=== PATIENT | female | born 1995 | race Caucasian/White ===

== ENCOUNTER 2016-11-09 23:19 | Emergency (ER) | payer OTHER ==
[2016-11-10 00:28] VITALS: BP 110/67; PULSE 69; TEMP 98.2; BMI 20.7
[2016-11-10] MEDS ORDERED: PROPARACAINE 0.5% OPHTH SOLN 15 ML BTL OD ONE (00:57)
--- NOTE | 2016-11-10 00:57 | PDOC ---
[id number] No Limitations - History of Present Illness Timing/Duration: 24 hours <Polo Christieui - Last Filed: 11/10/16 01:24> <Alice Rosales - Last Filed: 11/14/16 07:35> - General Chief Complaint: Eye Problem Stated Complaint: EYE PROBLEM Time Seen by Provider: 11/10/16 00:50 Past History - Travel Traveled outside of the country in the last 30 days: No Close contact w/someone who was outside of country & ill: No - Past Medical History Asthma: Yes (LAST ATTACK YEARS AGO) Cancer: No Cardiac Disorders: No Diabetes: No HTN: No Seizures: No Thyroid Disease: No - Psycho/Social/Smoking Cessation Hx Suicidal Ideation: No Smoking History: Never smoked Have you smoked in the past 12 months: No If you are a former smoker, when did you quit?: 3 yrs ago Hx Alcohol Use: No Drug/Substance Use Hx: No Hx Substance Use Treatment: No <ShahnazBárbara - Last Filed: 11/10/16 01:24> <Alice Rosales - Last Filed: 11/14/16 07:35> - Past Medical History Allergies/Adverse Reactions: Allergies Allergy/AdvReac Type Severity Reaction Status Date / Time No Known Allergies Allergy Verified 11/10/16 00:26 Review of Systems - Review of Systems Able to Perform ROS?: Yes Comments:: 11/10/16 00:54 CONSTITUTIONAL: Absent: fever, chills, diaphoresis, generalized weakness, malaise, loss of appetite HEENT: Right eye redness/FB sensation Absent: rhinorrhea, nasal congestion, throat pain, throat swelling, difficulty swallowing, mouth swelling, ear pain, eye pain, visual Changes Is the patient limited [place]an proficient: No <Shahnaz,Bárbara - Last Filed: 11/10/16 01:24> *Physical Exam - Vital Signs Last Vital Signs Temp Pulse Resp BP Pulse Ox 98.2 F 69 18 110/67 98 11/10/16 00:26 11/10/16 00:26 11/10/16 00:26 11/10/16 00:26 11/10/16 00:26 - Physical Exam Comments: 11/10/16 00:54 GENERAL: Well developed, well nourished. Awake and alert. No acute distress. HEENT: Normocephalic, atraumatic. PERRLA, EOMI. No conjunctival pallor. Sclera are non- icteric. Moist mucous membranes. Oropharynx is clear. VA: right; Left: B/L: 11/10/16 00:55 21-year-old female presents to the emergency department complaining of a foreign body sensation to the right eye since she awoke this morning. Patient denies any injuries. Patient denies wearing contact lenses. Patient denies blurry vision or visual disturbance. <Bárbara Christie - Last Filed: 11/10/16 01:24> - Vital Signs Last Vital Signs Temp Pulse Resp BP Pulse Ox 98.2 F 69 18 110/67 98 11/10/16 00:26 11/10/16 00:26 11/10/16 00:26 11/10/16 00:26 11/10/16 00:26 <Alice Rosales - Last Filed: 11/14/16 07:35> ED Treatment Course - Medications Given in the ED: ED Medications Discontinued Medications Generic Name Dose Route Start Last Admin Trade Name Freq PRN Reason Stop Dose Admin Erythromycin 1 applic 11/10/16 01:25 11/10/16 01:53 Erythromycin 0.5% Eye Ointment OD 11/10/16 01:26 1 applic ONCE ONE Administration Proparacaine HCl 2 drop 11/10/16 00:57 11/10/16 01:53 Alcaine - OD 11/10/16 00:58 2 drop ONCE ONE Administration Tetanus/Diphtheria Toxoids Adsorbed 0.5 ml 11/10/16 01:28 11/10/16 01:53 Decavac - IM 11/10/16 01:29 0.5 ml .ONCE ONE Administration <Alice Rosales - Last Filed: 11/14/16 07:35> *DC/Admit/Observation/Transfer <Bárbara Christie - Last Filed: 11/10/16 01:24> - Attestations Physician Attestion: I reviewed the case with the mid-level practitioner and agree with the mid- level practitioner's assessment, diagnosis and disposition. <Alice Rosales - Last Filed: 11/14/16 07:35> Diagnosis at time of Disposition: Conjunctivitis Qualifiers: Conjunctivitis type: acute Acute conjunctivitis type: viral Laterality: right Qualified Code(s): B30.9 - Viral conjunctivitis, unspecified - Discharge Dispostion Disposition: HOME Condition at time of disposition: Stable - Prescriptions Prescriptions: Erythromycin 0.5% Eye Ointment [Erythromycin 0.5% Eye Ointment -] 1 applic OD BID #1 tube - Referrals Referrals: Jaquelin Hannon MD [Primary Care Provider] - Angelica Dunaway MD [Staff Physician] - - Patient Instructions Printed Discharge Instructions: DI for Conjunctivitis Additional Instructions: Follow up with the opthalmologist Return to the ER for severe/persistent/worsening symptoms Erythromycin opthalic ointment twice a day to the right eye
[2016-11-10] MEDS ORDERED: FLUORESCEIN NA 1 EA STRIP ONE (01:10)
[2016-11-10] MEDS ORDERED: TETRACAINE 0.5% OPHTH SOLN 2 ML BOTTLE ONE (01:10)
[2016-11-10] MEDS ORDERED: ERYTHROMYCIN 0.5% OPHTHALMIC OINTMENT 3.5 GM TUBE OD ONE (01:25)
[2016-11-10] MEDS ORDERED: TETANUS AND DIPHTHERIA TOXOID 0.5 ML DISP.SYRIN IM ONE (01:28)
[2016-11-10] MEDS ORDERED: ERYTHROMYCIN 0.5% OPHTHALMIC OINTMENT 3.5 GM TUBE ONE (01:48)
--- NOTE | 2016-11-10 01:49 | PDOC ---
*Physical Exam - Vital Signs Last Vital Signs Temp Pulse Resp BP Pulse Ox 98.2 F 69 18 110/67 98 11/10/16 00:26 11/10/16 00:26 11/10/16 00:26 11/10/16 00:26 11/10/16 00:26 Medical Decision Making - Medical Decision Making 11/10/16 01:49 agree with care from JOSE Christie *DC/Admit/Observation/Transfer Diagnosis at time of Disposition: Conjunctivitis Qualifiers: Conjunctivitis type: acute Acute conjunctivitis type: viral Laterality: right Qualified Code(s): B30.9 - Viral conjunctivitis, unspecified - Discharge Dispostion Disposition: HOME Condition at time of disposition: Stable - Prescriptions Prescriptions: Erythromycin 0.5% Eye Ointment [Erythromycin 0.5% Eye Ointment -] 1 applic OD BID #1 tube - Referrals Referrals: Jaquelin Hannon MD [Primary Care Provider] - Angelica Dunaway MD [Staff Physician] - - Patient Instructions Printed Discharge Instructions: DI for Conjunctivitis Additional Instructions: Follow up with the opthalmologist Return to the ER for severe/persistent/worsening symptoms Erythromycin opthalic ointment twice a day to the right eye - Post Discharge Activity
== END 2016-11-10 01:59 | disposition home or self-care (01) ==
LOC: JER 23:19
PROC: 3E0234Z Introduction of Serum, Toxoid and Vaccine into Muscle, Percutaneous Approach (ICD-10-PCS; principal; 2016-11-09)
DX: B30.9 Viral conjunctivitis, unspecified (principal); B97.89 Other viral agents as the cause of diseases classified elsewhere; J45.909 Unspecified asthma, uncomplicated; Z87.891 Personal history of nicotine dependence
CPT/HCPCS: 90471; 90715; 99281-25

== ENCOUNTER 2017-06-20 10:16 | Emergency (ER) | payer OTHER ==
[2017-06-20 10:32] VITALS: BP 112/61; PULSE 71; TEMP 98.2; BMI 25.5
[2017-06-20] MEDS ORDERED: FLUORESCEIN NA 1 EA STRIP OU ONE (11:03)
[2017-06-20] MEDS ORDERED: TETRACAINE 0.5% HCL 0.6ML DROPPER.BOTTLE OU ONE (11:03)
[2017-06-20] MEDS ORDERED: TETRACAINE 0.5% OPHTH SOLN 2 ML BOTTLE ONE (11:06)
[2017-06-20] MEDS ORDERED: FLUORESCEIN NA 1 EA STRIP ONE (11:07)
--- NOTE | 2017-06-20 11:07 | PDOC ---
History of Present Illness - History of Present Illness Initial Comments: 06/20/17 11:21 The patient is a 22 year old female, with a significant past medical history of asthma, IUD in place, who presents to the emergency department with 2 weeks of intermittent abdominal pain and new onset of right eye redness and pain x 1 day. The patient states her abdominal pain starts at her epigastric region and radiates to the middle of her abdomen, diffusely. She reports her epigastric pain feels like stabbing, intermittent and lasting about 20 minutes each time. She also reports nausea and a pressure-like pain to her suprapubic region. She states she can not stand up straight secondary to her abdominal pain. She reports her bowel movements have been regular and normal, nonbloody. She denies exacerbation or alleviation of her abdominal pain with eating. Secondarily, she reports her right eye was red yesterday morning and states the pain to her right eye developed later in the day yesterday. She reports a clear discharge from her right eye this morning, but denies crusting. She also reports some blurred vision from her right eye. She reports having a recent conjunctivitis. She reports having 2 young children at home who have a cough and runny nose. LMP: May (2 weeks late) She denies chest pain, shortness of breath, headache and dizziness. She denies fever, chills, vomit, diarrhea and constipation. She denies dysuria, frequency, urgency and hematuria. Allergies: NKDA Past surgical history: right inguinal hernia repair Social history: Pt denies tobacco use. Reports occasional EtOH consumption <Tawanna Montalvo - Last Filed: 06/20/17 13:32> - General History Source: Patient Exam Limitations: No Limitations <Slade Marquez - Last Filed: 06/20/17 13:47> - General Chief Complaint: Pain Stated Complaint: RT EYE INJURY/ ABD PAIN Time Seen by Provider: 06/20/17 10:54 Past History <Tawanna Montalvo - Last Filed: 06/20/17 13:32> - Past Medical History Asthma: Yes Cancer: No Cardiac Disorders: No COPD: No Diabetes: No HTN: No Seizures: No Thyroid Disease: No - Surgical History Abdominal Surgery: Yes (HERNIA) - Suicide/Smoking/Psychosocial Hx Smoking History: Never smoked Have you smoked in the past 12 months: No If you are a former smoker, when did you quit?: 3 yrs ago Hx Alcohol Use: Yes (SOCIAL) Drug/Substance Use Hx: No Substance Use Type: None Hx Substance Use Treatment: No <Slade Marquez - Last Filed: 06/20/17 13:47> - Past Medical History Allergies/Adverse Reactions: Allergies Allergy/AdvReac Type Severity Reaction Status Date / Time No Known Allergies Allergy Verified 06/20/17 10:31 Home Medications: Ambulatory Orders Naproxen [Naprosyn -] 500 mg PO BID PRN #20 tablet 06/20/17 Polymyxin B Sulfate/Tmp [Polytrim Opthalmic Solution -] 1 drop OP Q3H #1 drops 06/20/17 Review of Systems - Review of Systems Able to Perform ROS?: Yes Comments:: 06/20/17 11:21 GENERAL/CONSTITUTIONAL: No fever or chills. No weakness. HEAD, EYES, EARS, NOSE AND THROAT: (+) right eye redness, pain and blurred vision. No ear pain or discharge. No sore throat. CARDIOVASCULAR: No chest pain or shortness of breath. RESPIRATORY: No cough, wheezing, or hemoptysis. GASTROINTESTINAL: (+) diffuse abdominal pain, spurapubic pressure, nausea, No vomiting, diarrhea or constipation. GENITOURINARY: No dysuria, frequency, or change in urination. MUSCULOSKELETAL: No joint or muscle swelling or pain. No neck or back pain. SKIN: No rash NEUROLOGIC: No headache, vertigo, loss of consciousness, or change in strength/ sensation. ENDOCRINE: No increased thirst. No abnormal weight change. HEMATOLOGIC/LYMPHATIC: No anemia, easy bleeding, or history of blood clots. ALLERGIC/IMMUNOLOGIC: No hives or skin allergy. <Tawanna Montalvo - Last Filed: 06/20/17 13:32> *Physical Exam - Vital Signs Last Vital Signs Temp Pulse Resp BP Pulse Ox 98.2 F 71 20 112/61 100 06/20/17 10:28 06/20/17 10:28 06/20/17 10:28 06/20/17 10:28 06/20/17 10:28 - Physical Exam Comments: 06/20/17 11:22 GENERAL: Awake, alert, and fully oriented, in no acute distress HEAD: No signs of trauma EYES: (+) small corneal abrasion with positive fluorescence uptake at 6 'o Clock. PERRLA, EOMI, sclera anicteric, conjunctiva clear ENT: Auricles normal inspection, hearing grossly normal, nares patent, oropharynx clear without exudates. Moist mucosa NECK: Normal ROM, supple, no lymphadenopathy, JVD, or masses LUNGS: Breath sounds equal, clear to auscultation bilaterally. No wheezes, and no crackles HEART: Regular rate and rhythm, normal S1 and S2, no murmurs, rubs or gallops ABDOMEN: (+) suprapubic tenderness to palpation with mild tenderness to the RLQ. Soft, normoactive bowel sounds. No guarding, no rebound. No masses EXTREMITIES: Normal range of motion, no edema. No clubbing or cyanosis. No cords, erythema, or tenderness NEUROLOGICAL: Cranial nerves II-XII intact. Normal speech, normal gait. Sensation intact in upper and lower extremities. 5/5 motor strength in upper and lower extremities. No pronator drift. Finger to nose intact. Rapid alternations intact. SKIN: Warm, Dry, normal turgor, no rashes or lesions noted. <Tawanna Montalvo - Last Filed: 06/20/17 13:32> - Vital Signs Last Vital Signs Temp Pulse Resp BP Pulse Ox 98.2 F 71 20 112/61 100 06/20/17 10:28 06/20/17 10:28 06/20/17 10:28 06/20/17 10:28 06/20/17 10:28 <Slade Marquez - Last Filed: 06/20/17 13:47> ED Treatment Course - LABORATORY CBC & Chemistry Diagram: 06/20/17 11:20 06/20/17 11:20 - RADIOLOGY Radiograph Interpretation: EXAM#: TYPE/EXAM: RESULT: [id number] US/TRANSVAGINAL ULTRASOUND US IUD. 2 weeks of lower abdominal pain. Pelvis ultrasound, transvesical and transvaginal LMP approximately one month The uterus measures 9 x 4.4 cm with a homogeneous echotexture. It appears retroverted on the transvaginal images. Intrauterine device is in place. Endometrial stripe measured 1.8 cm in thickness at the fundus. There is a small amount of free fluid in the cul-de-sac. Right ovary measures 3.2 x 1.9 cm and it appears unremarkable with normal vascular flow. Left ovary measures 2.8 x 1.7 cm that appears unremarkable with normal vascular flow. There is a small amount of free fluid in the cul-de-sac Impression: Intrauterine device in place. Thickened endometrial stripe measuring 1.8 cm at the fundus. There is a small amount of free fluid in the cul-de-sac and left adnexa that may be due to ruptured small ovarian cyst/follicle. Follow-up ultrasound in first week of the next menstrual cycle is needed for further evaluation. Reported By: Diya Barnett MD 06/20/17 1327 <Tawanna Montalvo - Last Filed: 06/20/17 13:32> - LABORATORY CBC & Chemistry Diagram: 06/20/17 11:20 06/20/17 11:20 <Slade Marquez - Last Filed: 06/20/17 13:47> Medical Decision Making - Medical Decision Making 06/20/17 11:05 A portion of this note was documented by scribe services under my direction. I have reviewed the details of the note, within reason, and agree with the documentation with the following case summary and management plan written by me. Patient treated in the ED. Nursing notes are reviewed and incorporated into the medical decision-making. Vital signs reviewed. Peripheral IV access obtained by the nurse, laboratory studies are drawn and sent, reviewed and interpreted by myself. Vital Signs Temp Pulse Resp BP Pulse Ox 98.2 F 71 20 112/61 100 06/20/17 10:28 06/20/17 10:28 06/20/17 10:28 06/20/17 10:28 06/20/17 10:28 22-year-old female with past medical history of asthma, prior conjunctivitis presents to the emergency department for 2 complains. Patient reports 2 weeks of intermittent several minutes of epigastric pain. Radiates to other parts her abdomen and is occasionally associated nausea. Denies fevers, chills, diarrhea. Denies dysuria. Unclear if related to food. Denies any exacerbating or improving factors. States has been occurring but has not improved. Patient has not seen a doctor for this. Also noted since yesterday that she was developing crusting and injection of the right eye. She reports that is itchy and has a tingling sensation in her right eye. Patient does not wear contact lenses but does wear glasses occasion. She did not bring her glasses here. The patient has abdominal pain. She has some mild tenderness in the lower abd ( suprapubic, RLQ). Though the patient still has her appendix, history appears to be less consistent with appendicitis. Patient reports that she is several minutes pain that is intermittent and comes and goes and is currently last 2 weeks. 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 However, we'll need transvaginal ultrasound. We'll obtain labs to rule out other abdominal pathology such as pancreatitis. However, we'll consider CT abdomen pelvis if the pain persists. We'll obtain labs including LFTs. I suspect patient likely has viral conjunctivitis. We'll however, need further examination the eye. Visual acuity is 20/70 OS, 20/50 OD. We'll perform a fluorescein test and reassess. 06/20/17 11:17 Fluorescein demonstrates a small uptake in the 6 o clock position in fluorescein right eye. No Bhanu sign. C/w small corneal abrasion and conjunctivitis. 06/20/17 13:43 Ultrasound reviewed. Intrauterine device in place. There is a small amount of free fluid in the cul-de-sac and left adnexa that may be due to ruptured small ovarian cyst/follicle. CBC, BMP 06/20/17 11:20 06/20/17 11:20 CMP Sodium 138 mmol/L (136-145) 06/20/17 11:20 Potassium 3.9 mmol/L (3.5-5.1) 06/20/17 11:20 Chloride 105 mmol/L (98-107) 06/20/17 11:20 Carbon Dioxide 25 mmol/L (21-32) 06/20/17 11:20 Anion Gap 8 (8-16) 06/20/17 11:20 BUN 12 mg/dL (7-18) D 06/20/17 11:20 Creatinine 0.4 mg/dL (0.55-1.02) L 06/20/17 11:20 Creat Clearance w eGFR > 60 (>60) 06/20/17 11:20 Random Glucose 91 mg/dL (74-106) 06/20/17 11:20 Calcium 8.6 mg/dL (8.5-10.1) 06/20/17 11:20 Total Bilirubin 0.8 mg/dL (0.2-1.0) 06/20/17 11:20 AST 8 U/L (15-37) L 06/20/17 11:20 ALT 16 U/L (12-78) 06/20/17 11:20 Alkaline Phosphatase 88 U/L (45-117) 06/20/17 11:20 Total Protein 6.9 g/dl (6.4-8.2) 06/20/17 11:20 Albumin 3.3 g/dl (3.4-5.0) L 06/20/17 11:20 Lipase 77 U/L (73-393) 06/20/17 11:20 Urine Test Results Urine Color Ltyellow 06/20/17 11:20 Urine Appearance Clear 06/20/17 11:20 Urine pH 7.0 (5.0-8.0) 06/20/17 11:20 Ur Specific [place] 1.019 (1.001-1.035) 06/20/17 11:20 Urine Protein Negative (NEGATIVE) 06/20/17 11:20 Urine Glucose (UA) Negative (NEGATIVE) 06/20/17 11:20 Urine Ketones Negative (NEGATIVE) 06/20/17 11:20 Urine Blood Negative (NEGATIVE) 06/20/17 11:20 Urine Nitrite Negative (NEGATIVE) 06/20/17 11:20 Urine Bilirubin Negative (NEGATIVE) 06/20/17 11:20 I had contacted the laboratory. Preliminary leukocyte esterase is negative. Patient reports significant relief from pain with tylenol. At this time, will defer on further imaging. Low suspicoin for appendicitis. I advised that this may be an ovarian cyst rupture. Will prescribe NSAIDS and refer patient to accounting manager cpa. Will discharge also with diagnosis of corneal abrasion and viral conjunctivitis. I discussed the physical exam findings, ancillary test results and final diagnoses with the patient. I answered all of the patient's questions. The patient was satisfied with the care received and felt comfortable with the discharge plan and treatment plan. The patient will call their primary care physician within 24 hours to arrange follow-up and will return to the Emergency Department with any new, persistant or worsening symptoms. <Slade Marquez - Last Filed: 06/20/17 13:47> *DC/Admit/Observation/Transfer - Attestations Scribe Attestion: 06/20/17 11:24 Documentation prepared by Tawanna Montalvo, acting as medical clerk for Slade Marquez MD, <Tawanna Montalvo - Last Filed: 06/20/17 13:32> - Discharge Dispostion Admit: No <Slade Marquez - Last Filed: 06/20/17 13:47> Diagnosis at time of Disposition: Conjunctivitis Qualifiers: Conjunctivitis type: unspecified Laterality: right Qualified Code(s): H10.9 - Unspecified conjunctivitis Ovarian cyst Qualifiers: Laterality: unspecified laterality Qualified Code(s): N83.209 - Unspecified ovarian cyst, unspecified side - Discharge Dispostion Disposition: HOME Condition at time of disposition: Improved - Prescriptions Prescriptions: Naproxen [Naprosyn -] 500 mg PO BID PRN #20 tablet PRN Reason: Pain Polymyxin B Sulfate/Tmp [Polytrim Opthalmic Solution -] 1 drop OP Q3H #1 drops - Referrals Referrals: Marta Spann MD [Primary Care Provider] - - Patient Instructions Printed Discharge Instructions: DI for Conjunctivitis, DI for Ovarian Cyst, DI for Corneal Abrasion Additional Instructions: Please use the eye drops as prescribed. You are contagious. Wash your hands frequently. You have a small corneal abrasion as well. Please use the antibiotic ointment for your eye. Follow up with your doctor. You also have an ovarian cyst. Please take the naproxen every 12 hours as needed for pain. - Post Discharge Activity Forms/Work/School Notes: Back to Work
[2017-06-20] MEDS ORDERED: ACETAMINOPHEN 1000 MG/100 ML VIAL (NON FORMULARY) IVPB ONE (11:16)
[2017-06-20] MEDS ORDERED: ACETAMINOPHEN INJECTION 100 ML IVPB ONE (11:27)
[2017-06-20 11:44] LABS: BASOPHIL 0.8 % (0-2.0); EOSINOPHIL 4.1 % (0-4.5); MCH 24.4 pg (25.7-33.7); MCHC 32.2 g/dl (32.0-36.0); MEAN CELL VOLUME 75.7 fl (80-96); MEAN PLT VOLUME 8.5 fl (7.5-11.1); NEUTROPHILS 59.4 % (42.8-82.8); PLATELET COUNT 220 K/MM3 (134-434); RDW 13.9 % (11.6-15.6); WHITE BLOOD COUNT 6.8 K/mm3 (4.0-10.0)
[2017-06-20 11:52] LABS: URINE APPEARANCE CLEAR; URINE BILIRUBIN NEGATIVE (NEGATIVE); URINE BLOOD NEGATIVE (NEGATIVE); URINE COLOR LTYELLOW; URINE GLUCOSE (UA) NEGATIVE (NEGATIVE); URINE KETONE NEGATIVE (NEGATIVE); URINE NITRITE NEGATIVE (NEGATIVE); URINE PROTEIN NEGATIVE (NEGATIVE); URINE UROBILINOGEN NEGATIVE mg/dL (0.2-1.0)
[2017-06-20 12:14] LABS: ALBUMIN 3.3 g/dl (3.4-5.0); ALK PHOS 88 U/L (45-117); ANION GAP 8 (8-16); BILIRUBIN,TOTAL 0.8 mg/dL (0.2-1.0); CALCIUM 8.6 mg/dL (8.5-10.1); CO2 25 mmol/L (21-32); CREATININE 0.4 mg/dL (0.55-1.02); GLUCOSE,RANDOM 91 mg/dL (74-106); SGOT/AST 8 U/L (15-37); SGPT/ALT 16 U/L (12-78); TOT PROT 6.9 g/dl (6.4-8.2)
[2017-06-20] MEDS ORDERED: KETOROLAC TROMETHAMINE 30 MG/1 ML VIAL IVPUSH ONE (13:47)
[2017-06-20] MEDS ORDERED: KETOROLAC TROMETHAMINE 30 MG/1 ML VIAL ONE (13:52)
[2017-06-20 14:15] LABS: URINE LEUK ESTERASE Negative (NEGATIVE)
== END 2017-06-20 14:00 | disposition home or self-care (01) ==
LOC: JER 10:16
PROC: 3E033NZ Introduction of Analgesics, Hypnotics, Sedatives into Peripheral Vein, Percutaneous Approach (ICD-10-PCS; principal; 2017-06-20)
PROC: 3E0333Z Introduction of Anti-inflammatory into Peripheral Vein, Percutaneous Approach (ICD-10-PCS; 2017-06-20)
DX: H10.31 Unspecified acute conjunctivitis, right eye (principal); N83.202 Unspecified ovarian cyst, left side
CPT/HCPCS: 36415; 76830-TC; 80053; 81003; 83690; 84703; 85025; 87086; 96374; 96375; 99282-25